=== PATIENT | female | born 2000 | race Caucasian/White ===

== ENCOUNTER 2024-09-26 08:56 | Outpatient (AMB) | payer OTHER, SELFPAY ==
[2024-09-26 09:09] VITALS: BP 116/78; PULSE 82; RESP 17; TEMP 36.6; O2SAT 98; BMI 25.3
--- NOTE | 2024-09-26 09:09 | AMB.OBINITIA ---
Vital Signs 09/26/24 09:09 Height 1.55 m Height Method Measured Weight 60.838 kg Weight Measurement Method Standing Scale BMI 25.3 BP 116/78 Blood Pressure Source Automatic Cuff Blood Pressure Location Right Upper Arm Position Sitting Respiration 17 Pulse 82 Pulse Source Monitor Temp 97.8 F Temp Source Temporal Artery Scan Pulse Oximetry (%) 98 Oxygen Delivery Method Room Air Allergies/Home Meds Allergies & Medications Allergies No Known Allergies Allergy (Verified 09/26/24 09:10) Medication Reconciliation mv-mn no.97-folic 180 mcg-dha 25 mg-herb no.293 25 mg chewable tablet (Alive Daily Support ) tab PO 09/26/24 [History Confirmed 09/26/24] Intake Visit Data Collection New Patient or Established: New Patient not seen in past 3 years at [facility] (considered New) Reason for Visit:: OBI Consent obtained for Telemed Visit: No Seen by Clinical Staff ONLY (RN/MA): No Continuous Improvement Coordinator Required: No Do You Feel Safe at Home: Yes Authorities Contacted: N/A PCP or OBGYN visit in last 3 months: No Hx Now: Yes Are you currently on any form of Control: No Pain Present Currently: No Pain Scale Used: Carias-Bass/Numerical Pain scale:: 0 Smoking Status Smoking Status: Never smoker Questionnaires Covid-19 Vaccine Questionnaire Has patient been vacinated for Covid-19 Have you been vacinated for Covid-19: Yes PHQ-9 PHQ-2 Over the last 2 weeks, how often have you been bothered by any of the following problems? 1. Little interest or pleasure in doing things: not at all 2. Feeling down, depressed, or hopeless: not at all Total score: 0 PHQ-9 3. Trouble falling or staying asleep, or sleeping too much: Not at all 4. Feeling tired or having little energy: Not at all 5. Poor appetite or overeating: Not at all 6. Feeling bad about yourself - or that you are a failure or have let yourself or your family down: Not at all 7. Trouble concentrating on things, such as reading the newspaper or watching television: Not at all 8. Moving or speaking so slowly that other people could have noticed? - Or the opposite - being so fidgety or restless that you have been moving around a lot more than usual: not at all 9. Thoughts that you would be better off or of hurting yourself in some way: Not at all Total score: 0 If you checked off any problems, how difficult have these problems made it for you to do your work, take care of things at home, or get along with other people?: not difficult at all Source: Developed by Drs. Adrian Cortes, Jody Ruiz, Nguyễn Kline and colleagues, with an educational david from [employer]. Social History Living Situation History Marital Status: Lives With: Family Housing: House Tobacco History Smoking Status: Never smoker Second Hand Smoke Exposure: No Alcohol History Alcohol Intake: Never Domestic Abuse History Do You Feel Safe at Home: Yes History of Present Illness HPI Narrative 24-year-old 2 para 1 for OBI. Patient has a history of irregular menses. Her last. Was in March. She denies any bleeding or SAB complaints. Previous history of premature at 35 weeks. It sounds like patient had been leaking and then by the time she got to labor and delivery she had waited for frequent contractions and she was fully dilated. The baby spent [facility] weeks at [facility] in the NICU. Denies social habits. Denies surgery. Denies chronic illness. Patient is taking vitamins. 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 no dates. denies sab s/s. no N/V. taking PNV. 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 Schedule ultrasound at the OB. Labs were drawn at OB lab. Discussed with patient NIPT and patient will let me know if she wants to proceed with trying that. Schedule with [facility] after dating. And I discussed SAB precautions and increase fluids. Discussed the portance of patient seeking care when cramping even if it is early. Return in 4 weeks OB check Menstrual History Menstrual reliability: approximate (month known) Flow: normal Menstrual regularity: irregular Monthly: No Age at menarche: 10 On control pills at conception: No Date of positive home test: 07/14/24 OB History : 2 Para: 1 Hx # Pregnancies: 1 Hx Total # of Abortions (Spontaneous & Elective): 0 # of Living Children: 1 Delivery History 1st : Child's name: WILI date: 03/24/22 sex: female Gestational age at delivery (weeks): 35 Delivery type: vaginal weight (lbs): 2267.962 g weight (oz): 85.049 g Delivery complications: PREEMIE BORN AT 35WKS History of depression before or after : No Infection History & Risk Evaluation History of STDs: none HIV risk evaluation: low risk Hepatitis B risk evaluation: low risk Patient or partner has history of Genital Herpes: No Genetic Screening & History Genetic Screening/Teratology Counseling - Includes patient, baby's father, or anyone in either family with: 1. Patient's age 35 years or older as of estimated date of delivery: No 2. Thalassemia (Georgian, Grenadian, Mediterranean, or Background); MCV less than 80: No 3. Neural Tube Defect (Meningomyelocele, Spina Bifida, or Anencephaly): No 4. Congenital Heart Defect: No 5. Down Syndrome: No 6. Fernando-Sachs (Ashkenazi Hindu, Cajun, Urdu Guamanian): No 7. Jacklyn Disease (Ashkenazi Hindu): No 8. Familial Dysautonomia (Ashkenazi Hindu): No 9. Sickle Cell Disease or Trait (): No 10. Hemophilia or other blood disorders: No 11. Muscular Dystrophy: No 12. Cystic Fibrosis: No 13. Floyd's Chorea: No 14. Mental Retardation/Autism: No 15. Other inherited genetic or chromosomal disorder: No 16. Maternal Metabolic Disorder (EG,TYPE 1 Diabetes, PKU): No 17. Patient or baby's father had a child with defects not listed above: No 18. Recurrent loss or a stillbirth: No 19. Medications (including supplements, vitamins, herbs or otc drugs)/illicit/recreational drugs/alcohol since last menstrual period: No 20. Any other: No Infection History 1. Live with someone with TB or exposed to TB: No 2. Rash or viral illness since last menstrual period: No 3. Hepatitis B,C: No Other (see comments) Source: [employer] Review of Systems Review of Systems Systems Reviewed: All systems reviewed, normal except as documented Exam General Limitations: no limitations General Appearance: alert, in no apparent distress, comfortable, cooperative, healthy appearing, well developed and well groomed Chest Chest inspection: Present normal inspection and symmetric chest wall rise Resp Respiratory exam: Present normal lung sounds bilaterally Card Cardiovascular exam: Present regular rate, normal rhythm and normal heart sounds Psych Psychiatric exam: Present normal affect and normal mood Office Procedures OB Clinic LOC & Office Proc's Nursing/Assessment Patient Status: Established Patient OB Clinic Nursing Assessment: Medication Reconciliation, Update PMH in EMR and Vital Signs OB Clinic Coordination of Care: Complex Care and Chronic Disease 1-5, Education Complex Pt/Fam, Consent,records obtained, informed consent and 4+ Authorizations needed Special Needs: Heart tones Established Patient Charge Established Patient Point Assignment: 135 Established Patient Point Charge: EP Level 4 (120-155) Assessment & Plan Diagnosis / Problem List (1) Encounter for supervision of high risk in second trimester, antepartum: Status: Acute Plan Schedule sono at [facility] for dates. OB panel drawn at the [facility] as well in the lab. Carrier screen will be drawn at [facility]. Discussed SAB precautions and the importance of coming for care if she has cramping or leaking right away. Continue vitamins care. Return in 4 weeks OB check Additional Plan Follow Up: 4 Weeks (obc)
== END 2024-09-26 09:38 | disposition home or self-care (01) ==
LOC: HODSOBC 08:56
PROVIDERS: Supervising Provider Advanced Practice Midwife; Visit Provider Advanced Practice Midwife
DX: O09.211 Supervision of pregnancy with history of pre-term labor, first trimester (principal); Z3A.13 13 weeks gestation of pregnancy
CPT/HCPCS: 99214; G0463

== ENCOUNTER → 2024-09-26 | Outpatient (CLI) | payer OTHER, SELFPAY ==
[2024-09-26 10:50] LABS: Collection Type, Urine Clean Catch
[2024-09-26 11:19] LABS: Basophils # (Auto) 0.0 Thou/mm3 (0.0-0.2); Basophils % (Auto) 0 % (0-2.5); Eosinophils # (Auto) 0.1 Thou/mm3 (0.0-0.5); Eosinophils % (Auto) 1 % (0-10); Hematocrit 35.5 % (36.0-46.0); Hemoglobin 12.6 g/dL (12.0-16.0); Immature Granulocytes Auto 0.05 Thou/mm3 (0.00-0.00); Lymphocytes # (Auto) 2.1 Thou/mm3 (1.0-4.8); Lymphocytes % (Auto) 26 % (10-50); Mean Corpuscular HGB Conc 35.5 g/dl (31.0-37.0); Mean Corpuscular Hemoglobin 30.1 pg (25.0-35.0); Mean Corpuscular Volume 85 fL (80-100); Monocytes # (Auto) 0.5 Thou/mm3 (0.0-0.8); Monocytes % (Auto) 6 % (0-12); Neutrophils # (Auto) 5.1 Thou/mm3 (1.8-7.7); Neutrophils % (Auto) 65 % (37-80); Nucleated Red Blood Cell # 0.00 Thou/mm3 (0.00-0.00); Nucleated Red Blood Cell % 0 /100 WBC (0); Platelet Count 332 Thou/mm3 (140-440); RDW Standard Deviation 41.4 fL (36.4-46.3); Red Blood Count 4.19 Miln/mm3 (4.00-5.20); White Blood Count 7.8 Thou/mm3 (3.6-11.0)
[2024-09-26 11:39] LABS: Syphilis Nonreactive (Nonreactive)
[2024-09-26 12:05] LABS: Hepatitis B Surface Antigen Non Reactive (Non React); Hepatitis C Antibody Non Reactive (Non React)
[2024-09-26 12:12] LABS: HIV (1&2) Antibody Rapid Non-Reactive
[2024-09-26 12:17] LABS: Bacteria,Urine 3+; Bilirubin,Urine Negative (Negative); Blood,Urine Negative (Negative); Calcium Oxalate Crystals,Urine 2+; Clarity,Urine Turbid (Clear/Hazy); Color,Urine Yellow (Lt Yel-Yel); Glucose, Urine Negative (Negative); Ketones,Urine Negative (Negative); Leukocyte Esterase,Urine Positive (Negative); Nitrite,Urine Negative (Negative); PH,Urine 6.0 (5.0-7.0); Protein,Urine Negative (Neg - Trace); RBC,Urine 2 /hpf (0-3); Specific Gravity,Urine 1.020 (1.001-1.035); Squamous Epithelial Cell,Urine 8 /hpf (0-5); Urobilinogen,Urine Negative mg/dL (0.0-1.0); WBC,Urine 1 /hpf (0-5)
[2024-09-26 12:26] LABS: Rubella, IgG Antibody Equivocal
[2024-09-26 12:30] LABS: Culture Indicated,Urine Yes
[2024-09-29 18:24] LABS: Chlamydia trachomatis PCR Negative (Not Detect); Neisseria Gonorrhoeae DNA PCR Negative (Not Detect); Trichomonas Negative (Negative)
== END | disposition home or self-care (01) ==
PROVIDERS: Referring Provider Advanced Practice Midwife; Visit Provider Advanced Practice Midwife
DX: O09.92 Supervision of high risk pregnancy, unspecified, second trimester (principal); Z3A.00 Weeks of gestation of pregnancy not specified
CPT/HCPCS: 36415; 81001; 85025; 86703; 86762; 86780; 86803; 86850; 86900; 86901; 87077; 87086; 87186; 87340; 87491; 87591; 87661

== ENCOUNTER → 2024-10-07 | Outpatient (CLI) | payer OTHER, SELFPAY ==
--- NOTE | 2024-10-07 10:30 | XR_ITS ---
Examination: Complete OB ultrasound greater than 14 weeks Date and time of exam: October 08, 2019 5:11 AM INDICATIONS: Supervision of high risk Findings: Viable intrauterine single fetus with single amniotic sac presentation breech Cardiac motion 160 BPM Placenta fundal grade 1 Umbilical cord insertion 3 vessel seen Amniotic fluid index normal spine maternal left Cervix 3.4 cm Right ovary 3.2 cm arterial flow Left ovary 3.0 cm arterial flow Left ovarian simple cyst 2.8 x 2.1 cm. Composite estimated gestational age based on BPD, head circumference, abdominal circumference, femur length is 17 weeks 1 day Estimated weight 178 g. Survey of intracranial anatomy, spinal anatomy, abdominal anatomy, four-chamber heart performed with no abnormalities identified. Impression: Viable intrauterine gestation breech presentation.
== END | disposition home or self-care (01) ==
PROVIDERS: PCP Family Medicine; Referring Provider Advanced Practice Midwife; Visit Provider Advanced Practice Midwife
DX: O32.1XX0 Maternal care for breech presentation, not applicable or unspecified (principal); Z3A.17 17 weeks gestation of pregnancy
CPT/HCPCS: 76805

== ENCOUNTER 2024-12-06 09:47 | Outpatient (AMB) | payer MEDICAID, SELFPAY ==
[2024-12-06 09:58] VITALS: BP 109/71; PULSE 97; RESP 18; TEMP 36.6; O2SAT 98; BMI 26.8
--- NOTE | 2024-12-06 09:58 | OBCLNT_ITS ---
Vital Signs 12/06/24 09:58 Height 1.55 m Height Method Measured Weight 64.41 kg Weight Measurement Method Standing Scale BMI 26.8 BP 109/71 Blood Pressure Source Automatic Cuff Blood Pressure Location Right Upper Arm Position Sitting Respiration 18 Pulse 97 Pulse Source Monitor Temp 97.9 F Temp Source Temporal Artery Scan Pulse Oximetry (%) 98 Oxygen Delivery Method Room Air Allergies/Home Meds Allergies & Medications Allergies No Known Allergies Allergy (Verified 09/26/24 09:10) Intake Visit Data Collection New Patient or Established: Established Patient (seen at [facility] within 3 years) Reason for Visit:: OBC FOLLOW UP Seen by Clinical Staff ONLY (RN/MA): No Stud Master/Mistress Required: No Do You Feel Safe at Home: Yes Authorities Contacted: N/A PCP or OBGYN visit in last 3 months: Yes Date of Last PCP or OBGYN visit: 09/26/24 Hx Now: Yes Are you currently on any form of Control: No Pain Present Currently: No Smoking Status Smoking Status: Never smoker Questionnaires PHQ-9 PHQ-2 Over the last 2 weeks, how often have you been bothered by any of the following problems? 1. Little interest or pleasure in doing things: not at all PHQ-9 8. Moving or speaking so slowly that other people could have noticed? - Or the opposite - being so fidgety or restless that you have been moving around a lot more than usual: not at all Source: Developed by Drs. Adrian Cortes, Jody Ruiz, Nguyễn Kline and colleagues, with an educational david from [employer]. 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 no dates. denies sab s/s. no N/V. taking PNV. 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 Schedule ultrasound at the OB. Labs were drawn at OB lab. Discussed with patient NIPT and patient will let me know if she wants to proceed with trying that. Schedule with [facility] after dating. And I discussed SAB precautions and increase fluids. Discussed the portance of patient seeking care when cramping even if it is early. Return in 4 weeks OB check 12/06/24 -?-?-?-?-?-?-?-?-?-?-?-?- 25w 5d 64.41 kg 109/71 absent unknown 25 145 active no ob complaints. fetus active, denies UC.leaking.bleeding 3rd tri labs today with NIPT, schedule anatomy scan with mfm. discuss ptl precaution, continue pnv, hydrate. rtc 4 week ob check MONIE Calculator Estimated Delivery Date Method Current WG Current Estimate 03/16/25 Ultrasound #1 25w 5d Other Estimates 03/29/25 Manual 23w 6d No Dates, ir reg menses. + preg test 08/07 Notes Visit Date: 12/06/24 Last Updated by: Daisha Monet CNM 24 yo 1st sono: 10/07/24: IUP 17w1. EDC: 03/16/25. OB panel: O+,abs-, rpr;;nr, Rubella: equivocal, HBSAG-,HIV-,HC-, GC/CT-, UA: + ecoli, tx, /332 Visit Date: 09/26/24 Last Updated by: Daisha Monet CNM 09/26: irreg menses/no dates Office Procedures OB Clinic LOC & Office Proc's Nursing/Assessment Patient Status: Established Patient OB Clinic Nursing Assessment: Medication Reconciliation, Update PMH in EMR and Vital Signs OB Clinic Coordination of Care: Complex Care and Chronic Disease 1-5, Education Complex Pt/Fam, Consent,records obtained, informed consent, Lab and Imaging orders and Results/Orders obtained Special Needs: Heart tones Established Patient Charge Established Patient Point Assignment: 130 Established Patient Point Charge: EP Level 4 (120-155) Assessment & Plan Diagnosis / Problem List (1) Encounter for supervision of high risk in second trimester, antepartum: Status: Acute Plan Schedule [facility] ultrasound. For anatomy scan. Third trimester labs with NIPT today. Discussed labor precautions. Continue vitamins. Increase fluids. Return in 4 weeks OB check Additional Plan Follow Up: 4 Weeks (obc)
== END 2024-12-06 10:37 | disposition home or self-care (01) ==
LOC: HODSOBC 09:47
PROVIDERS: Supervising Provider Advanced Practice Midwife; Visit Provider Advanced Practice Midwife
DX: O09.92 Supervision of high risk pregnancy, unspecified, second trimester (principal); Z3A.25 25 weeks gestation of pregnancy
CPT/HCPCS: 99214; G0463

== ENCOUNTER 2025-01-03 09:33 | Outpatient (AMB) | payer MEDICAID, SELFPAY ==
[2025-01-03 09:45] VITALS: BP 109/73; PULSE 100; RESP 20; TEMP 36.3; O2SAT 98; BMI 27.3
--- NOTE | 2025-01-03 09:45 | OBCLNT_ITS ---
Vital Signs 01/03/25 09:45 Height 1.55 m Height Method Stated Weight 65.771 kg Weight Measurement Method Standing Scale BMI 27.3 BP 109/73 Blood Pressure Source Automatic Cuff Blood Pressure Location Left Upper Arm Position Sitting Respiration 20 Pulse 100 Pulse Source Monitor Temp 97.4 F Temp Source Oral Pulse Oximetry (%) 98 Oxygen Delivery Method Room Air Allergies/Home Meds Allergies & Medications Allergies No Known Allergies Allergy (Verified 01/03/25 09:46) Medication Reconciliation mv-mn no.97-folic 180 mcg-dha 25 mg-herb no.293 25 mg chewable tablet (Alive Daily Support ) tab PO 09/26/24 [History Confirmed 01/03/25] Intake Visit Data Collection New Patient or Established: Established Patient (seen at [facility] within 3 years) Reason for Visit:: CARE Seen by Clinical Staff ONLY (RN/MA): No Echocardiograph Tech Required: No Do You Feel Safe at Home: Yes Authorities Contacted: N/A PCP or OBGYN visit in last 3 months: Yes Hx Now: Yes Are you currently on any form of Control: No Pain Present Currently: No Pain Scale Used: Carias-Bass/Numerical Pain scale:: 0 Smoking Status Smoking Status: Never smoker Immunizations Flu Vaccine in the Last 12 Months: No Flu Vaccine Exclusion Criteria: No Exclusion Criteria Questionnaires Covid-19 Vaccine Questionnaire Has patient been vacinated for Covid-19 Have you been vacinated for Covid-19: Yes PHQ-9 PHQ-2 Over the last 2 weeks, how often have you been bothered by any of the following problems? 1. Little interest or pleasure in doing things: not at all 2. Feeling down, depressed, or hopeless: not at all Total score: 0 PHQ-9 3. Trouble falling or staying asleep, or sleeping too much: Not at all 4. Feeling tired or having little energy: Not at all 5. Poor appetite or overeating: Not at all 6. Feeling bad about yourself - or that you are a failure or have let yourself or your family down: Not at all 7. Trouble concentrating on things, such as reading the newspaper or watching television: Not at all 8. Moving or speaking so slowly that other people could have noticed? - Or the opposite - being so fidgety or restless that you have been moving around a lot more than usual: not at all 9. Thoughts that you would be better off or of hurting yourself in some way: Not at all Total score: 0 Source: Developed by Drs. Adrian Cortes, Jody Ruiz, Nguyễn Kline and colleagues, with an educational david from [employer]. 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 no dates. denies sab s/s. no N/V. taking PNV. 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 Schedule ultrasound at the OB. Labs were drawn at OB lab. Discussed with patient NIPT and patient will let me know if she wants to proceed with trying that. Schedule with [facility] after dating. And I discussed SAB precautions and increase fluids. Discussed the portance of patient seeking care when cramping even if it is early. Return in 4 weeks OB check 12/06/24 -?-?-?-?-?-?-?-?-?-?-?-?- 25w 5d 64.41 kg 109/71 absent unknown 25 145 active no ob complaints. fetus active, denies UC.leaking.bleeding 3rd tri labs today with NIPT, schedule anatomy scan with mfm. discuss ptl precaution, continue pnv, hydrate. rtc 4 week ob check 01/03/25 -?-?-?-?-?-?-?-?-?-?-?-?- 29w 5d 65.771 kg 109/73 absent unknown 28 140 active Fetus active. Denies leaking, bleeding, contractions. MFM anatomy scan January 11. Keep appointment January 11 for sono. Discussed labor precautions. Increase fluids. Continue prenatals. Return in 3 weeks OB check Keep appointment January 11 for sono. Discussed labor precautions. Increase fluids. Continue prenatals. Return in 3 weeks OB check. discuss TDAP MONIE Calculator Estimated Delivery Date Method Current WG Current Estimate 03/16/25 Ultrasound #1 29w 5d Other Estimates 03/16/25 Manual 29w 5d No Dates, ir reg menses. + preg test 08/07 Notes Visit Date: 01/03/25 Last Updated by: Daisha Monet CNM NIPT-/boy, carrier screen-CF- Visit Date: 12/06/24 Last Updated by: Daisha Monet CNM 24 yo 1st sono: 10/07/24: IUP 17w1. EDC: 03/16/25. OB panel: O+,abs-, rpr;;nr, Rubella: equivocal, HBSAG-,HIV-,HC-, GC/CT-, UA: + ecoli, tx, Visit Date: 09/26/24 Last Updated by: Daisha Monet CNM 09/26: irreg menses/no dates Office Procedures OBC Clinic LOC & Office Proc's Nursing/Assessment Patient Status: Established Patient OB Clinic Nursing Assessment: Medication Reconciliation, Update PMH in EMR and Vital Signs OB Clinic Coordination of Care: Complex Care and Chronic Disease 1-5, Consent,records obtained, informed consent, Education Simp Pt/Fam, 1 Ins Authorization, Lab and Imaging orders, Results/Orders obtained and Staff clarify orders Special Needs: Heart tones Established Patient Charge Established Patient Point Assignment: 150 Established Patient Point Charge: EP Level 4 (120-155) Assessment & Plan Diagnosis / Problem List (1) Encounter for supervision of high risk in third trimester, antepartum: Status: Acute Plan Anatomy scan is scheduled for January 11. Discussed labor precautions. Continue vitamins. Increase fluids. Return in 3 weeks OB check. Discussed Tdap. Additional Plan Follow Up: 1 Week (obc)
== END 2025-01-03 10:12 | disposition home or self-care (01) ==
LOC: HODSOBC 09:33
PROVIDERS: Supervising Provider Advanced Practice Midwife; Visit Provider Advanced Practice Midwife
DX: O09.93 Supervision of high risk pregnancy, unspecified, third trimester (principal); Z3A.29 29 weeks gestation of pregnancy
CPT/HCPCS: 99214; G0463

== ENCOUNTER 2025-01-23 13:55 | Outpatient (AMB) | payer MEDICAID, SELFPAY ==
[2025-01-23 14:19] VITALS: BP 108/73; PULSE 95; RESP 18; TEMP 36.2; O2SAT 98; BMI 27.3
--- NOTE | 2025-01-23 14:19 | OBCLNT_ITS ---
Vital Signs 01/23/25 14:19 Height 1.55 m Height Method Stated Weight 65.544 kg Weight Measurement Method Standing Scale BMI 27.3 BP 108/73 Blood Pressure Source Automatic Cuff Blood Pressure Location Left Upper Arm Position Sitting Respiration 18 Pulse 95 Pulse Source Monitor Temp 97.2 F Temp Source Oral Pulse Oximetry (%) 98 Oxygen Delivery Method Room Air Allergies/Home Meds Allergies & Medications Allergies No Known Allergies Allergy (Verified 01/23/25 14:22) Medication Reconciliation mv-mn no.97-folic 180 mcg-dha 25 mg-herb no.293 25 mg chewable tablet (Alive Daily Support ) tab PO 09/26/24 [History Confirmed 01/23/25] Intake Visit Data Collection New Patient or Established: Established Patient (seen at [facility] within 3 years) Reason for Visit:: OBC Seen by Clinical Staff ONLY (RN/MA): No Actuarial Assistant Required: No Do You Feel Safe at Home: Yes Authorities Contacted: N/A PCP or OBGYN visit in last 3 months: Yes Date of Last PCP or OBGYN visit: 01/03/25 Hx Now: Yes Are you currently on any form of Control: No Pain Present Currently: No Pain Scale Used: Carias-Bass/Numerical Pain scale:: 0 Smoking Status Smoking Status: Never smoker Immunizations Flu Vaccine in the Last 12 Months: No Flu Vaccine Exclusion Criteria: No Exclusion Criteria Questionnaires Covid-19 Vaccine Questionnaire Has patient been vacinated for Covid-19 Have you been vacinated for Covid-19: No PHQ-9 PHQ-2 Over the last 2 weeks, how often have you been bothered by any of the following problems? 1. Little interest or pleasure in doing things: not at all 2. Feeling down, depressed, or hopeless: not at all Total score: 0 PHQ-9 3. Trouble falling or staying asleep, or sleeping too much: Not at all 4. Feeling tired or having little energy: Not at all 5. Poor appetite or overeating: Not at all 6. Feeling bad about yourself - or that you are a failure or have let yourself or your family down: Not at all 7. Trouble concentrating on things, such as reading the newspaper or watching television: Not at all 8. Moving or speaking so slowly that other people could have noticed? - Or the opposite - being so fidgety or restless that you have been moving around a lot more than usual: not at all 9. Thoughts that you would be better off or of hurting yourself in some way: Not at all Total score: 0 If you checked off any problems, how difficult have these problems made it for you to do your work, take care of things at home, or get along with other people?: not difficult at all Source: Developed by Drs. Adrian Cortes, Jody Ruiz, Nguyễn Kline and colleagues, with an educational david from [employer]. 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 no dates. denies sab s/s. no N/V. taking PNV. 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 Schedule ultrasound at the OB. Labs were drawn at OB lab. Discussed with patient NIPT and patient will let me know if she wants to proceed with trying that. Schedule with [facility] dating. And I discussed SAB precautions and increase fluids. Discussed the portance of patient seeking care when cramping even if it is early. Return in 4 weeks OB check 12/06/24 -?-?-?-?-?-?-?-?-?-?-?-?- 25w 5d 64.41 kg 109/71 absent unknown 25 145 active no ob complaints. fetus active, denies UC.leaking.bleeding 3rd tri labs today with NIPT, schedule anatomy scan with mfm. discuss ptl precaution, continue pnv, hydrate. rtc 4 week ob check 01/03/25 -?-?-?-?-?-?-?-?-?-?-?-?- 29w 5d 65.771 kg 109/73 absent unknown 28 140 active Fetus active. Denies leaking, bleeding, contractions. MFM anatomy scan January 11. Keep appointment January 11 for sono. Discussed labor precautions. Increase fluids. Continue prenatals. Return in 3 weeks OB check Keep appointment January 11 for sono. Discussed labor precautions. Inc rease fluids. Continue prenatals. Return in 3 weeks OB check. discuss TDAP 01/23/25 -?-?-?-?-?-?-?-?-?-?-?-?- 32w 4d 65.544 kg 108/73 absent unknown 32 142 active Reports movement. Denies leaking, bleeding, contractions. Discussed kick count twice a day. Discussed labor precautions. Discussed danger signs and symptoms and return in 2 weeks OB check. Patient was scheduled for echo because of of finding several small VSDs. And the perinatologist will follow-up with this patient in 4 weeks to assess growth. The echo was will read and there was a normal rate and rhythm. The pediatric surgeon said that he saw 1 small VSD. There is a patent ductus arteriosus and a physiologic shunt other than that the echo showed no evidence of an arrhythmia and good ventricular function. I will schedule a weekly NST BPP for this patient based on the recommendation of the perinatologist MONIE Calculator Estimated Delivery Date Method Current WG Current Estimate 03/16/25 Ultrasound #1 32w 4d Other Estimates 03/16/25 Ultrasound #2 32w 4d 03/16/25 Manual 32w 4d Irreg menses + preg test 08/07, EFW: 76%. Notes Visit Date: 01/03/25 Last Updated by: Daisha Monet CNM NIPT-/boy, carrier screen-CF- Visit Date: 12/06/24 Last Updated by: Daisha Monet CNM 24 yo 1st sono: 10/07/24: IUP 17w1. EDC: 03/16/25. OB panel: O+,abs-, rpr;;nr, Rubella: equivocal, HBSAG-,HIV-,HC-, GC/CT-, UA: + robby mann, Visit Date: 09/26/24 Last Updated by: Daisha Monet CNM 09/26: irreg menses/no dates Office Procedures OBC Clinic LOC & Office Proc's Nursing/Assessment Patient Status: Established Patient OB Clinic Nursing Assessment: Medication Reconciliation, Update PMH in EMR and Vital Signs OB Clinic Coordination of Care: Consent,records obtained, informed consent, Education Simp Pt/Fam, Lab and Imaging orders, Results/Orders obtained and Staff clarify orders Special Needs: Heart tones Established Patient Charge Established Patient Point Assignment: 110 Established Patient Point Charge: EP Level 3 (80-115) Immunizations diphth,pertus(acell),tetanus 2.5 Lf unit-8 mcg-5 Lf/0.5mL IM syringe Performing Provider: Daisha Monet CNM Performing Location: [facility] Administered by: Shelly Bhatt MA on 01/23/25 15:28 Dose Route Admin Location Dispensed Lot Number Expiration Date Pack age [facility] [place] Ex[employer] Cutter 0.5 mL IM Right Deltoid 0.5 mL [id number] 02/02/27 [id number] [id number] [place] VIS Given Date VIS Provided VIS Publication Date 01/23/25 Single Vaccine 24 Eligibility Eligibility Date Funding Source Public Non-[facility] Assessment & Plan Diagnosis / Problem List (1) Encounter for supervision of high risk in third trimester, antepartum: Status: Acute (2) delivery: Status: Acute Plan Schedule weekly NST BPP. Patient has a follow-up with At [facility] in 4 weeks for growth. Discussed kick count twice a day. Discussed labor precautions and how to monitor for rupture membranes or contractions. And return in 2 weeks OB check
== END 2025-01-23 15:21 | disposition home or self-care (01) ==
LOC: HODSOBC 13:55
PROVIDERS: Supervising Provider Advanced Practice Midwife; Visit Provider Advanced Practice Midwife
DX: O09.893 Supervision of other high risk pregnancies, third trimester (principal); O35.BXX0 Maternal care for other (suspected) fetal abnormality and damage, fetal cardiac anomalies, not applicable or unspecified; Z3A.32 32 weeks gestation of pregnancy; Z23 Encounter for immunization
CPT/HCPCS: 90471; 90715; 99213; G0463

== ENCOUNTER 2025-02-10 14:14 | Observation (INO) | payer MEDICAID, SELFPAY ==
[2025-02-10] VITALS (24 sets, daily range): BP systolic 122; BP diastolic 76; PULSE 101–137; RESP 20–99; TEMP 36.8; O2SAT 96–99; BMI 28.3
--- NOTE | 2025-02-10 14:23 | XR_ITS ---
Examination: Biophysical profile, ultrasound Date and time of exam: February 10, 2025, 1440 hours INDICATIONS: Onset decreased movement today Technique: Multiple transabdominal sonographic images of the pelvis abdomen obtained. Attention is directed to the breathing movement, gross body movement, amniotic fluid volume and tone. Findings: Amniotic fluid index 7.5 cm Total biophysical profile is 8 of 8. breathing movement is 2. Gross body movement is 2. tone is 2. Qualitative amniotic fluid volume is 2 Impression: Biophysical profile is 8 of 8.
[2025-02-10] MEDS: RINGERS LACTATED 1000 ML 1,000 ML 999 ML IV (14:30)
[2025-02-10] MEDS: ACETAMINOPHEN 500 MG TABLET 1000 MG PO (15:29)
== END 2025-02-10 16:48 | disposition home or self-care (01) ==
PROVIDERS: Admitting Provider Obstetrics & Gynecology; Visit Provider Obstetrics & Gynecology
DX: O36.8130 Decreased fetal movements, third trimester, not applicable or unspecified (principal); O26.893 Other specified pregnancy related conditions, third trimester; R50.9 Fever, unspecified; Z3A.35 35 weeks gestation of pregnancy
CPT/HCPCS: 59025; 59899; 76819; G0378; J7120; A9270

== ENCOUNTER 2025-03-08 07:58 | Outpatient (RCR) | payer MEDICAID, SELFPAY ==
--- NOTE | 2025-02-01 14:56 | XR_ITS ---
Examination: Biophysical profile, ultrasound Date and time of exam: February 01, 2025, 1449 hours INDICATIONS: Diagnosis labor Technique: Multiple transabdominal sonographic images of the pelvis abdomen obtained. Attention is directed to the breathing movement, gross body movement, amniotic fluid volume and tone. Findings: Amniotic fluid index 17.3 cm Total biophysical profile is 8 of 8. breathing movement is 2. Gross body movement is 2. tone is 2. Qualitative amniotic fluid volume is 2 Impression: Biophysical profile is 8 of 8.
[2025-02-01 15:22] VITALS: BP 117/72; PULSE 90; RESP 16; TEMP 36.9
--- NOTE | 2025-02-08 15:06 | XR_ITS ---
EXAMINATION: US OB biophysical profile ORDERING PROVIDER: Daisha Monet CNM HISTORY: WEEKLY NST/BPP; HIGH RISK TECHNIQUE: Multiple transabdominal sonographic images were obtained by tissue technologist and submitted for interpretation. COMPARISON: 02/01/2025, biophysical profile. FINDINGS: FETUS: [place]. HEART MOTION: 162 beats/min. AMNIOTIC FLUID INDEX: 9.7 cm BREATHING MOVEMENT: 2 . GROSS BODY MOVEMENT: 2 . TONE: 2 . QUALITATIVE AMNIOTIC FLUID VOLUME: 2 TOTAL BIOPHYSICAL PROFILE: 8 of 8 . IMPRESSION: Single live intrauterine gestation with biophysical profile 8 of 8.
[2025-02-08 15:45] VITALS: BP 101/61; PULSE 102; RESP 16; TEMP 36.7
--- NOTE | 2025-02-15 15:12 | XR_ITS ---
Examination: Biophysical profile, ultrasound Date and time of exam: February 15, 2025, 1521 hours INDICATIONS: History labor, diagnosis high risk Technique: Multiple transabdominal sonographic images of the pelvis abdomen obtained. Attention is directed to the breathing movement, gross body movement, amniotic fluid volume and tone. Findings: Amniotic fluid index 16 cm Total biophysical profile is 8 of 8. breathing movement is 2. Gross body movement is 2. tone is 2. Qualitative amniotic fluid volume is 2 Impression: Biophysical profile is 8 of 8.
[2025-02-15 15:39] VITALS: BP 101/62; PULSE 83; RESP 16; TEMP 36.7
--- NOTE | 2025-02-22 15:05 | XR_ITS ---
Examination: Biophysical profile, ultrasound Date and time of exam: February 22, 2025: 1526 hours INDICATIONS: High risk labor Technique: Multiple transabdominal sonographic images of the pelvis abdomen obtained. Attention is directed to the breathing movement, gross body movement, amniotic fluid volume and tone. Findings: Amniotic fluid index 12.8 cm Total biophysical profile is 8 of 8. breathing movement is 2. Gross body movement is 2. tone is 2. Qualitative amniotic fluid volume is 2 Impression: Biophysical profile is 8 of 8.
[2025-02-22 15:36] VITALS: BP 97/58; PULSE 102; RESP 16; TEMP 36.7
--- NOTE | 2025-03-01 15:26 | XR_ITS ---
Examination: Biophysical profile, ultrasound Date and time of exam: March 01, 2025, 1532 hours INDICATIONS: Diagnosis labor high risk Technique: Multiple transabdominal sonographic images of the pelvis abdomen obtained. Attention is directed to the breathing movement, gross body movement, amniotic fluid volume and tone. Findings: Amniotic fluid index 12.2 cm Total biophysical profile is 8 of 8. breathing movement is 2. Gross body movement is 2. tone is 2. Qualitative amniotic fluid volume is 2 Impression: Biophysical profile is 8 of 8.
[2025-03-01 15:56] VITALS: BP 108/69; PULSE 90; RESP 16; TEMP 36.7
--- NOTE | 2025-03-08 08:10 | XR_ITS ---
Examination: Biophysical profile, ultrasound Date and time of exam: March 08, 2025, 0818 hours INDICATIONS: Diagnosis high risk , diagnosis history labor Technique: Multiple transabdominal sonographic images of the pelvis abdomen obtained. Attention is directed to the breathing movement, gross body movement, amniotic fluid volume and tone. Findings: Amniotic fluid index 8.8 cm Total biophysical profile is 8 of 8. breathing movement is 2. Gross body movement is 2. tone is 2. Qualitative amniotic fluid volume is 2 Impression: Biophysical profile is 8 of 8.
[2025-03-08 08:37] VITALS: BP 120/72; PULSE 83; RESP 16; TEMP 36.7
== END 2025-03-08 23:59 | disposition home or self-care (01) ==
LOC: S4S1 07:58
PROVIDERS: PCP Advanced Practice Midwife; Referring Provider Advanced Practice Midwife; Visit Provider Advanced Practice Midwife
DX: O09.93 Supervision of high risk pregnancy, unspecified, third trimester (principal); O60.03 Preterm labor without delivery, third trimester; O09.293 Supervision of pregnancy with other poor reproductive or obstetric history, third trimester; O28.3 Abnormal ultrasonic finding on antenatal screening of mother
CPT/HCPCS: 59025; 76819